=== PATIENT | male | born 1970 | race Caucasian/White ===

== ENCOUNTER 2018-05-09 18:59 | Emergency (ER) | payer SELFPAY ==
[~2018-05-09] VITALS: Ht 170.2 cm; Wt 90.1 kg
[~2018-05-09 18:59] MED LIST: ANTIVERT PO; CIPROFLOXACN500 MG PO; EPITOL200 MG PO; FLAGYL500 MG PO; MEDDOSEPAK PO; NO HOME MEDS; NORCO1 TA1 PO; TRAMADOL HCL50 MG OR; ZOFRAN ODT4 MG PO
[2018-05-09 19:44] LABS: URINE BILIRUBIN - DIPSTICK NEGATIVE (NEGATIVE); URINE BLOOD DIPSTICK LARGE (NEGATIVE); URINE COLOR YELLOW; URINE GLUCOSE - DIPSTICK NEGATIVE (NEGATIVE); URINE KETONE NEGATIVE (NEGATIVE); URINE LEUK ESTERASE NEGATIVE (NEGATIVE); URINE NITRITE - DIPSTICK NEGATIVE (Negative); URINE PROTEIN - DIPSTICK NEGATIVE (NEG-TRACE); URINE SPECIFIC GRAVITY >=1.030; URINE UROBILINOGEN - DIPSTICK 0.2 E.U./dL (0.2)
[2018-05-09 19:45] LABS: URINE CLARITY HAZY
[2018-05-09 19:46] LABS: HEMATOCRIT 45.7 % (39.0-50.0); HEMOGLOBIN 14.7 g/dl (14.0-18.0); IMMATURE GRANULOCYTES 0.3 % (0.0-5.0); MEAN CELL VOLUME 86.9 fL CALC (80.0-100.0); MEAN CORPUSCULAR HGB 27.9 pG CALC (26.0-32.0); MEAN CORPUSCULAR HGB CONC 32.2 g/L CALC (32.0-36.0); NEUT# 4.92 thou/uL (1.82-7.42); RED BLOOD COUNT 5.26 mill/uL (4.70-6.10); RED CELL DISTRI WIDTH 12.5 % (11.5-15.5)
[2018-05-09 19:53] LABS: URINE RBC 25-50 RBC/hpf (0-5)
[2018-05-09 19:57] LABS: ALBUMIN 4.3 g/dL (3.2-5.0); ALKALINE PHOSPHATASE 50 u/l (38-126); ANION GAP 13 (6-22 (CALC)); BILIRUBIN, TOTAL 0.5 mg/dL (0.0-1.4); BUN 13 mg/dL (9-20); BUN/CREATININE RATIO 15 (12-20 (CALC)); CARBON DIOXIDE 27 mmol/l (22-30); CHLORIDE 107 mmol/l (95-108); CREATININE 0.9 mg/dL (0.7-1.3); GFR > 60 ML/MIN (>=60 (CALC)); GFR FOR AFR.AMER. > 60 ML/MIN (>=60 (CALC)); POTASSIUM 4.3 mmol/l (3.5-5.1); SGOT/AST 31 u/l (17-59); SODIUM 143 mmol/l (137-146); TOTAL PROTEIN 7.7 g/dL (6.3-8.2)
[2018-05-09] MEDS ORDERED: LORTAB 5/3255 MG PO (21:14)
[2018-05-09] MEDS ORDERED: ZOFRAN4 MG/TAB PO (21:14)
[2018-05-09] MEDS ORDERED: TAMSULOSIN0.4 MG PO (21:18)
[2018-05-09 21:29] VITALS: BP 166/88
== END 2018-05-09 21:29 | disposition home or self-care (01) | DRG 694 ==
LOC: ED 18:59
DX: N13.2 Hydronephrosis with renal and ureteral calculous obstruction (principal); Z87.442 Personal history of urinary calculi; R10.31 Right lower quadrant pain; R11.0 Nausea
CPT/HCPCS: Q9967

== ENCOUNTER 2018-05-19 05:49 | Emergency (ER) | payer SELFPAY ==
[~2018-05-19] VITALS: Ht 170.2 cm; Wt 90.0 kg
[~2018-05-19 05:49] MED LIST changes: +LORTAB 5/3255 MG PO; +TAMSULOSIN0.4 MG PO; +ZOFRAN4 MG/TAB PO
[2018-05-19 06:52] LABS: HEMATOCRIT 46.4 % (39.0-50.0); HEMOGLOBIN 15.2 g/dl (14.0-18.0); IMMATURE GRANULOCYTES 0.1 % (0.0-5.0); MEAN CELL VOLUME 86.7 fL CALC (80.0-100.0); MEAN CORPUSCULAR HGB 28.4 pG CALC (26.0-32.0); MEAN CORPUSCULAR HGB CONC 32.8 g/L CALC (32.0-36.0); NEUT# 4.48 thou/uL (1.82-7.42); RED BLOOD COUNT 5.35 mill/uL (4.70-6.10); RED CELL DISTRI WIDTH 12.6 % (11.5-15.5)
[2018-05-19 07:03] LABS: ALBUMIN 4.4 g/dL (3.2-5.0); ALKALINE PHOSPHATASE 50 u/l (38-126); ANION GAP 13 (6-22 (CALC)); BILIRUBIN, TOTAL 0.5 mg/dL (0.0-1.4); BUN 17 mg/dL (9-20); BUN/CREATININE RATIO 17 (12-20 (CALC)); CARBON DIOXIDE 27 mmol/l (22-30); CHLORIDE 106 mmol/l (95-108); GFR > 60 ML/MIN (>=60 (CALC)); GFR FOR AFR.AMER. > 60 ML/MIN (>=60 (CALC)); POTASSIUM 4.4 mmol/l (3.5-5.1); SGOT/AST 30 u/l (17-59); SODIUM 142 mmol/l (137-146); TOTAL PROTEIN 7.9 g/dL (6.3-8.2)
[2018-05-19] MEDS ORDERED: LORTAB 1010 MG PO (07:54)
[2018-05-19 08:13] LABS: URINE BILIRUBIN - DIPSTICK NEGATIVE (NEGATIVE); URINE BLOOD DIPSTICK TRACE-INTACT (NEGATIVE); URINE COLOR YELLOW; URINE GLUCOSE - DIPSTICK NEGATIVE (NEGATIVE); URINE KETONE NEGATIVE (NEGATIVE); URINE LEUK ESTERASE NEGATIVE (NEGATIVE); URINE NITRITE - DIPSTICK NEGATIVE (Negative); URINE PH 5.5 (4.5-8.0); URINE PROTEIN - DIPSTICK NEGATIVE (NEG-TRACE); URINE SPECIFIC GRAVITY >=1.030; URINE UROBILINOGEN - DIPSTICK 0.2 E.U./dL (0.2)
[2018-05-19 08:16] LABS: URINE CLARITY CLEAR
[2018-05-19 08:43] VITALS: BP 152/4
== END 2018-05-19 08:42 | disposition home or self-care (01) | DRG 694 ==
LOC: ED 05:49
PROVIDERS: Family Medicine
DX: N20.0 Calculus of kidney (principal)

== ENCOUNTER 2018-11-19 20:36 | Emergency (ER) | payer OTHER ==
[~2018-11-19] VITALS: Ht 170.2 cm; Wt 90.0 kg
[~2018-11-19 20:36] MED LIST changes: +LORTAB 1010 MG PO
[2018-11-19] MEDS ORDERED: TRAMADOL HCL50 MG PO (23:54)
[2018-11-19] MEDS ORDERED: VOLTAREN - GENE75 MG PO (23:54)
[2018-11-20 00:10] VITALS: BP 124/80
== END 2018-11-20 00:15 | disposition home or self-care (01) | DRG 605 ==
LOC: ED 20:36
DX: S70.02XA Contusion of left hip, initial encounter (principal); S93.402A Sprain of unspecified ligament of left ankle, initial encounter; S29.012A Strain of muscle and tendon of back wall of thorax, initial encounter; W17.89XA Other fall from one level to another, initial encounter; Y93.89 Activity, other specified; Y99.0 Civilian activity done for income or pay

== ENCOUNTER 2020-08-08 17:44 | Emergency (ER) | payer BC ==
[~2020-08-08] VITALS: Ht 170.2 cm; Wt 90.0 kg
[~2020-08-08 17:44] MED LIST changes: +TRAMADOL HCL50 MG PO; +VOLTAREN - GENE75 MG PO
[2020-08-08] MEDS ORDERED: METFORMIN500 M2 PO (18:14)
[2020-08-08] MEDS ORDERED: LISINOPRIL2.5 MG PO (18:14)
[2020-08-08] MEDS ORDERED: MECLIZINE25 MG PO (18:15)
[2020-08-08] MEDS ORDERED: ASPIRIN 81 LOW81 MG PO (18:16)
[2020-08-08 18:24] LABS: HEMATOCRIT 44.2 % (39.0-50.0); HEMOGLOBIN 14.5 g/dl (14.0-18.0); IMMATURE GRANULOCYTES 0.3 % (0.0-5.0); MEAN CELL VOLUME 82.8 fL CALC (80.0-100.0); MEAN CORPUSCULAR HGB 27.2 pG CALC (26.0-32.0); MEAN CORPUSCULAR HGB CONC 32.8 g/dL CAL (32.0-36.0); NEUT# 3.45 thou/uL (1.82-7.42); RED BLOOD COUNT 5.34 mill/uL (4.70-6.10)
[2020-08-08 18:46] LABS: ALBUMIN 4.5 g/dL (3.2-5.0); BILIRUBIN, TOTAL 0.5 mg/dL (0.0-1.4); BUN 15 mg/dL (9-20); BUN/CREATININE RATIO 19 (12-20 (CALC)); CARBON DIOXIDE 22 mmol/l (22-30); CREATININE 0.8 mg/dL (0.7-1.3); GFR > 60 ML/MIN (>=60 (CALC)); GFR FOR AFR.AMER. > 60 ML/MIN (>=60 (CALC)); POTASSIUM 4.3 mmol/l (3.5-5.1); SGOT/AST 30 u/l (17-59); TOTAL PROTEIN 7.6 g/dL (6.3-8.2)
[2020-08-08 18:55] LABS: ALKALINE PHOSPHATASE 78 u/l (38-126); ANION GAP 18 (6-22 (CALC)); CHLORIDE 90 mmol/l (95-108); SODIUM 126 mmol/l (137-146)
[2020-08-08 18:58] LABS: MYOGLOBIN 48 ng/mL (0 - 121)
[2020-08-08 19:07] LABS: URINE BILIRUBIN - DIPSTICK NEGATIVE (NEGATIVE); URINE BLOOD DIPSTICK TRACE-LYSED (NEGATIVE); URINE COLOR YELLOW; URINE GLUCOSE - DIPSTICK >=1000 mg/dL (NEGATIVE); URINE KETONE NEGATIVE (NEGATIVE); URINE LEUK ESTERASE NEGATIVE (NEGATIVE); URINE NITRITE - DIPSTICK NEGATIVE (Negative); URINE PH 5.5 (4.5-8.0); URINE PROTEIN - DIPSTICK NEGATIVE (NEG-TRACE); URINE UROBILINOGEN - DIPSTICK 0.2 E.U./dL (0.2)
[2020-08-08] MEDS ORDERED: METFORMIN HCL1000 M1 PO (19:54)
[2020-08-08 20:26] VITALS: BP 137/88
--- NOTE | 2020-08-10 08:44 | NUR ---
PER GAY IN LAB, PRELIM BLOOD CX RSULTS SHOW GRAM POSITIVE COCCI IN 2 BOTTLES, SAME SET, LIKE A CONTAMINANT. PT WAS SEEN FOR HYPERGLYCEMIA, NO SIGNS OF INFX. RESULTS CALLED TO DR GRIJALVA, REQUEST WE F/U WITH FINAL RESULTS.
--- NOTE | 2020-08-12 08:35 | NUR ---
FINAL BLOOD CX SHOWS S WARNERI IN 2 OF 4 BOTTLES, SAME SET, LIKELY CONTAMINANT. PT WAS SEEN FOR HYPERGLYCEMIA, WBC WNL AND AFEBRILE. RESULTS REPORTED TO DR VASQUEZ, NO FOLLOW UP WARRANTED
== END 2020-08-08 20:42 | disposition home or self-care (01) | DRG 639 ==
LOC: ED 17:44
PROVIDERS: Emergency Medicine
DX: E11.65 Type 2 diabetes mellitus with hyperglycemia (principal); Z79.84 Long term (current) use of oral hypoglycemic drugs

== ENCOUNTER 2021-02-23 19:11 | Emergency (ER) | payer MEDICAID ==
[~2021-02-23] VITALS: Ht 170.2 cm; Wt 68.0 kg
[~2021-02-23 19:11] MED LIST changes: +ASPIRIN 81 LOW81 MG PO; +LISINOPRIL2.5 MG PO; +MECLIZINE25 MG PO; +METFORMIN HCL1000 M1 PO; +METFORMIN500 M2 PO
[2021-02-23 20:16] LABS: HEMATOCRIT 44.7 % (39.0-50.0); HEMOGLOBIN 14.2 g/dl (14.0-18.0); IMMATURE GRANULOCYTES 0.1 % (0.0-5.0); MEAN CELL VOLUME 87.6 fL CALC (80.0-100.0); MEAN CORPUSCULAR HGB 27.8 pG CALC (26.0-32.0); MEAN CORPUSCULAR HGB CONC 31.8 g/dL CAL (32.0-36.0); NEUT# 5.01 thou/uL (1.82-7.42); RED BLOOD COUNT 5.1 mill/uL (4.70-6.10); RED CELL DISTRI WIDTH 13.5 % (11.5-15.5)
[2021-02-23 20:30] LABS: ALBUMIN 4.4 g/dL (3.2-5.0); ALKALINE PHOSPHATASE 46 u/l (38-126); BILIRUBIN, TOTAL 0.5 mg/dL (0.0-1.4); BUN 19 mg/dL (9-20); BUN/CREATININE RATIO 25 (12-20 (CALC)); CARBON DIOXIDE 26 mmol/l (22-30); CREATININE 0.8 mg/dL (0.7-1.3); GFR > 60 ML/MIN (>=60 (CALC)); GFR FOR AFR.AMER. > 60 ML/MIN (>=60 (CALC)); POTASSIUM 3.6 mmol/l (3.5-5.1); SGOT/AST 29 u/l (17-59)
[2021-02-23 20:31] LABS: ANION GAP 11 (6-22 (CALC)); CHLORIDE 105 mmol/l (95-108); SODIUM 138 mmol/l (137-146)
[2021-02-23 20:42] LABS: MYOGLOBIN 31 ng/mL (0 - 121)
[2021-02-23 23:57] LABS: URINE BILIRUBIN - DIPSTICK NEGATIVE (NEGATIVE); URINE BLOOD DIPSTICK NEGATIVE (NEGATIVE); URINE COLOR YELLOW; URINE GLUCOSE - DIPSTICK NEGATIVE (NEGATIVE); URINE KETONE 15 mg/dL (NEGATIVE); URINE LEUK ESTERASE NEGATIVE (NEGATIVE); URINE NITRITE - DIPSTICK NEGATIVE (Negative); URINE PH 5.5 (4.5-8.0); URINE PROTEIN - DIPSTICK NEGATIVE (NEG-TRACE); URINE SPECIFIC GRAVITY >=1.030; URINE UROBILINOGEN - DIPSTICK 0.2 E.U./dL (0.2)
[2021-02-24 02:23] VITALS: BP 105/65
== END 2021-02-24 02:24 | disposition home or self-care (01) ==
LOC: ED 19:11
PROVIDERS: Family Medicine
DX: R55 Syncope and collapse (principal); E11.9 Type 2 diabetes mellitus without complications; Z87.442 Personal history of urinary calculi; Z79.84 Long term (current) use of oral hypoglycemic drugs; Z20.822 Contact with and (suspected) exposure to COVID-19

== ENCOUNTER 2021-06-20 18:08 | Emergency (ER) | payer MEDICAID ==
[~2021-06-20] VITALS: Ht 170.2 cm; Wt 77.2 kg
[2021-06-20] MEDS ORDERED: TRULICITY0.75 MG/0. IN (18:24)
[2021-06-20] MEDS ORDERED: RYBELSUS7 MG PO (18:24)
[2021-06-20 18:52] LABS: HEMATOCRIT 45.7 % (39.0-50.0); HEMOGLOBIN 14.6 g/dl (14.0-18.0); IMMATURE GRANULOCYTES 0.2 % (0.0-5.0); MEAN CELL VOLUME 86.6 fL CALC (80.0-100.0); MEAN CORPUSCULAR HGB 27.7 pG CALC (26.0-32.0); MEAN CORPUSCULAR HGB CONC 31.9 g/dL CAL (32.0-36.0); NEUT# 3.53 thou/uL (1.82-7.42); RED BLOOD COUNT 5.28 mill/uL (4.70-6.10); RED CELL DISTRI WIDTH 12.8 % (11.5-15.5); URINE BILIRUBIN - DIPSTICK NEGATIVE (NEGATIVE); URINE BLOOD DIPSTICK MODERATE (NEGATIVE); URINE COLOR YELLOW; URINE GLUCOSE - DIPSTICK NEGATIVE (NEGATIVE); URINE KETONE NEGATIVE (NEGATIVE); URINE LEUK ESTERASE NEGATIVE (NEGATIVE); URINE PH 6.5 (4.5-8.0); URINE PROTEIN - DIPSTICK NEGATIVE (NEG-TRACE)
[2021-06-20 18:53] LABS: URINE NITRITE - DIPSTICK NEGATIVE (Negative)
[2021-06-20 19:03] LABS: ALBUMIN 4.2 g/dL (3.2-5.0); ALKALINE PHOSPHATASE 46 u/l (38-126); ANION GAP 11 (6-22 (CALC)); BILIRUBIN, TOTAL 0.5 mg/dL (0.0-1.4); BUN 19 mg/dL (9-20); BUN/CREATININE RATIO 20 (12-20 (CALC)); CARBON DIOXIDE 31 mmol/l (22-30); CHLORIDE 104 mmol/l (95-108); GFR > 60 ML/MIN (>=60 (CALC)); GFR FOR AFR.AMER. > 60 ML/MIN (>=60 (CALC)); POTASSIUM 4.2 mmol/l (3.5-5.1); SGOT/AST 32 u/l (17-59); SODIUM 141 mmol/l (137-146); TOTAL PROTEIN 7.7 g/dL (6.3-8.2)
[2021-06-20] MEDS ORDERED: LORTAB 1010 MG PO (19:40)
[2021-06-20] MEDS ORDERED: TAMSULOSIN0.4 MG PO (19:40)
[2021-06-20 20:04] VITALS: BP 155/86
== END 2021-06-20 20:20 | disposition home or self-care (01) ==
LOC: ED 18:08
PROVIDERS: Emergency Medicine
DX: N13.2 Hydronephrosis with renal and ureteral calculous obstruction (principal); E11.9 Type 2 diabetes mellitus without complications; Z87.442 Personal history of urinary calculi

== ENCOUNTER 2021-07-10 23:47 | Emergency (ER) | payer MEDICAID ==
[~2021-07-10] VITALS: Ht 172.7 cm; Wt 90.0 kg
[~2021-07-10 23:47] MED LIST changes: +RYBELSUS7 MG PO; +TRULICITY0.75 MG/0. IN
[2021-07-11 00:51] LABS: HEMATOCRIT 47.6 % (39.0-50.0); HEMOGLOBIN 15.1 g/dl (14.0-18.0); IMMATURE GRANULOCYTES 0.2 % (0.0-5.0); MEAN CELL VOLUME 86.2 fL CALC (80.0-100.0); MEAN CORPUSCULAR HGB 27.4 pG CALC (26.0-32.0); MEAN CORPUSCULAR HGB CONC 31.7 g/dL CAL (32.0-36.0); NEUT# 7.84 thou/uL (1.82-7.42); RED BLOOD COUNT 5.52 mill/uL (4.70-6.10); RED CELL DISTRI WIDTH 12.7 % (11.5-15.5)
[2021-07-11 00:59] LABS: URINE BLOOD DIPSTICK LARGE (NEGATIVE); URINE COLOR YELLOW; URINE GLUCOSE - DIPSTICK NEGATIVE (NEGATIVE); URINE KETONE 15 mg/dL (NEGATIVE); URINE LEUK ESTERASE NEGATIVE (NEGATIVE); URINE PH 5.5 (4.5-8.0); URINE PROTEIN - DIPSTICK 30 mg/dL (NEG-TRACE); URINE SPECIFIC GRAVITY >=1.030; URINE UROBILINOGEN - DIPSTICK 0.2 E.U./dL (0.2)
[2021-07-11 01:04] LABS: URINE BILIRUBIN - DIPSTICK SMALL (NEGATIVE); URINE NITRITE - DIPSTICK NEGATIVE (Negative)
[2021-07-11 01:06] LABS: URINE RBC 50-100 RBC/hpf (0-5); URINE SQUAMOUS EPITHELIAL CELL FEW EPI/hpf (0-FEW); URINE WBC 0-2 WBC/hpf (0-5)
[2021-07-11 01:14] LABS: ALBUMIN 4.3 g/dL (3.2-5.0); ALKALINE PHOSPHATASE 62 u/l (38-126); ANION GAP 13 (6-22 (CALC)); BUN 17 mg/dL (9-20); BUN/CREATININE RATIO 16 (12-20 (CALC)); CARBON DIOXIDE 27 mmol/l (22-30); CHLORIDE 103 mmol/l (95-108); CREATININE 1.1 mg/dL (0.7-1.3); GFR > 60 ML/MIN (>=60 (CALC)); GFR FOR AFR.AMER. > 60 ML/MIN (>=60 (CALC)); POTASSIUM 3.7 mmol/l (3.5-5.1); SGOT/AST 23 u/l (17-59); SODIUM 139 mmol/l (137-146); TOTAL PROTEIN 7.9 g/dL (6.3-8.2)
[2021-07-11 01:15] LABS: BILIRUBIN, TOTAL 0.8 mg/dL (0.0-1.4)
[2021-07-11] MEDS ORDERED: PROMETHAZINE HY25 M1 PO (01:43)
[2021-07-11] MEDS ORDERED: TAMSULOSIN0.4 MG PO (01:43)
[2021-07-11] MEDS ORDERED: LORTAB5 PO (01:43)
[2021-07-11 01:49] VITALS: BP 151/85
== END 2021-07-11 02:01 | disposition home or self-care (01) ==
LOC: ED 23:47
PROVIDERS: Family Medicine
DX: N13.2 Hydronephrosis with renal and ureteral calculous obstruction (principal); E11.9 Type 2 diabetes mellitus without complications; Z87.442 Personal history of urinary calculi; Z79.899 Other long term (current) drug therapy

== ENCOUNTER 2024-01-20 11:41 | Emergency (ER) | payer SELFPAY ==
[~2024-01-20] VITALS: Ht 172.7 cm; Wt 79.0 kg
[2024-01-20] VITALS (14 sets, daily range): BP systolic 110–122; BP diastolic 77–89
[~2024-01-20 11:41] MED LIST changes: +IMODIUM2 MG PO; +LORTAB5 PO; +ONDANSETRON4 MG PO; +PROMETHAZINE HY25 M1 PO
[2024-01-20 12:12] LABS: BASO% 0.5 % (0-3); EOS% 0.8 % (0-8); HEMOGLOBIN 15.6 g/dl (14.0-18.0); IMMATURE GRANULOCYTES 0.3 % (0.0-5.0); MEAN CELL VOLUME 85.3 fL CALC (80.0-100.0); MEAN CORPUSCULAR HGB 27.7 pG CALC (26.0-32.0); MEAN CORPUSCULAR HGB CONC 32.5 g/dL CAL (32.0-36.0); MONO% 7.9 % (2-13); NEUT# 4.3 thou/uL (1.82-7.42); NEUT% 72.5 % (42-76); RED BLOOD COUNT 5.63 mill/uL (4.70-6.10); RED CELL DISTRI WIDTH 12.4 % (11.5-15.5)
[2024-01-20] MEDS ORDERED: SODIUM CHLORIDE 0.9% 1,000 ML IV ONE (12:15)
[2024-01-20 12:30] LABS: ALBUMIN 4.8 g/dL (3.2-5.0); BILIRUBIN, TOTAL 0.7 mg/dL (0.2-1.3); CREATININE 0.8 mg/dL (0.7-1.3); TOTAL PROTEIN 8.5 g/dL (6.3-8.2)
[2024-01-20 12:49] LABS: URINE BILIRUBIN - DIPSTICK Negative (NEGATIVE); URINE BLOOD DIPSTICK Trace-intact (NEGATIVE); URINE CLARITY Clear; URINE GLUCOSE - DIPSTICK >=1000 mg/dL (NEGATIVE); URINE KETONE Negative (NEGATIVE); URINE LEUK ESTERASE Negative (Negative); URINE NITRITE - DIPSTICK Negative (Negative); URINE PH 5.5 (4.5-8.0); URINE PROTEIN - DIPSTICK Negative (NEG-TRACE); URINE SPECIFIC GRAVITY <=1.005; URINE UROBILINOGEN - DIPSTICK 0.2 E.U./dL (0.2)
[2024-01-20] MEDS ORDERED: LACTATED RINGER'S 1,000 ML IV ONE (12:50)
[2024-01-20] MEDS ORDERED: INSULIN REGULAR (HUMAN) 100 UNIT/ML INJ IV ONE ×3 (12:50→13:50)
[2024-01-20 12:51] LABS: URINE COLOR Yellow
[2024-01-20] MEDS ORDERED: TRULICITY0.75 MG/0. SC (14:37)
== END 2024-01-20 15:09 | disposition home or self-care (01) | DRG 639 ==
LOC: ED 11:41
PROVIDERS: Family Medicine
DX: E11.65 Type 2 diabetes mellitus with hyperglycemia (principal); Z79.84 Long term (current) use of oral hypoglycemic drugs; Z20.822 Contact with and (suspected) exposure to COVID-19